=== PATIENT | female | born 1955 | race Caucasian/White ===

== ENCOUNTER → 2017-11-18 | Outpatient (CLI) | payer OTHER ==
--- NOTE | 2017-11-19 07:51 | XCELERA REPORT ---
[address] [address] Lower Extremity Arterial Evaluation Name: JOVI MARTINEZ Age: 62 yrs Gender: Female : 1955 Patient Status: Outpatient Patient Location: Study Date: 11/18/2017 09:32 AM Procedure: A color flow and duplex scan of the lower extremity arteries was performed bilaterally with velocity and waveform anaylsis. Reason For Study: ULCER Ordering Physician: CLARA RIVERA Performed By: Geronimo John Measurements and Calculations Right Left MANAGER PROJECT MANAGEMENT PSV 137.1 131.3 cm/sec Prox PFA PSV 54.5 83.3 cm/sec Prox SFA PSV 101.2 139.9 cm/sec Mid SFA PSV -126.5 -120.8 cm/sec Dist SFA PSV -115.9 -120.7 cm/sec Prox Pop A PSV 96.2 86.1 cm/sec Dist MERNA PSV 115.0 cm/sec Dist CREDIT DEPARTMENT MANAGER PSV 101.2 10.0 cm/sec Channing Pedis PSV 102.0 87.4 cm/sec Right Side Arterial Evaluation Normal velocity and triphasic waveforms noted from the Common Femoral artery to the infrageniculate vessels. 0 % stenosis . Ankle Brachial index was declined by the patient. Challenging study due to body habitus. Left Side Arterial Evaluation Normal velocity and triphasic waveforms noted from the Common Femoral artery to the Popliteal artery. Infrageniculate vessels, difficult to identify. Dorsalis Pedis triphasic and entirely normal. 0 % stenosis . Ankle Brachial index was declined by the patient. Challenging study due to body habitus. Interpretation Summary No hemodynamically significant lesions in the right lower extremity only, on duplex imaging, at rest. Left probably normal also, study limited by body habitus. : CLARA RIVERA > Solomon Rivero
--- NOTE | 2017-11-19 07:57 | XCELERA REPORT ---
[address] [address] Lower Extremity Venous Evaluation Name: JOVI MARTINEZ Age: 62 yrs Gender: Female : 1955 Patient Status: Outpatient Patient Location: Study Date: 11/18/2017 10:14 AM Procedure: A bilateral duplex scan of the lower extremity veins was performed. The evaluation included responses to compression and other maneuvers with patient in the supine and standing positions to assess venous insufficiency. Reason For Study: ULCER Ordering Physician: CLARA RIVERA Performed By: Geronimo John Right Sided Venous Evaluation Deep venous system evaluation shows patent veins with no obstruction or significant reflux identified. Sapheno Femoral junction: no reflux. Femoral vein reflux: no reflux. Greater Saphenous vein, Proximal thigh: reflux: 1seconds, 7.8 mm diameter. Greater Saphenous vein, mid thigh: reflux: 2 seconds. 7.6 mm. Greater Saphenous vein, Distal thigh: reflux: 1.5 seconds.5.5 mm. Greater Saphenous vein, Proximal below knee: No significant Perforators identified. Left Sided Venous Evaluation Deep venous system evaluation shows patent veins with no obstruction or significant reflux identified. Sapheno Femoral junction: no reflux. Femoral vein reflux: no reflux. Greater Saphenous vein, Proximal thigh: no reflux. Greater Saphenous vein, mid thigh: reflux: 1.3 seconds. 5.8 mm. Greater Saphenous vein, Distal thigh: reflux: 1.8 seconds.7.6 mm. Greater Saphenous vein, Proximal below knee: No significant Perforators identified. Interpretation Summary No duplex evidence of DVT or obstruction in the bilateral lower extremities. Bilateral Greater Saphenous reflux noted. May be amenable to intervention. : CLARA RIVERA > Solomon Rivero
== END ==
LOC: SP 08:33
PROVIDERS: ATTEND Nurse Practitioner
DX: L97.222 Non-pressure chronic ulcer of left calf with fat layer exposed (principal)
CPT/HCPCS: 93925; 93970

== ENCOUNTER → 2018-04-27 | Outpatient (CLI) | payer OTHER ==
--- NOTE | 2018-04-27 14:23 | RADIOLOGY REPORT (SQ) ---
EXAM DESCRIPTION: CT CHEST WITH COMPLETED DATE/TIME: 04/27/2018 1:25 pm REASON FOR STUDY: I31.3 PERICARDIAL EFFUSION (NONINFLAMMATORY) I31.3 PERICARDIAL EFFUSION (NONINFLA MMATORY) COMPARISON: None. TECHNIQUE: CT scan of the chest performed using helical scanning technique with dynamic intravenous contrast injection. Images reviewed with lung, soft tissue and bone windows. Reconstructed coronal and sagittal MPR and MIP images reviewed. All images stored on PACS. All CT scanners at this facility use dose modulation, iterative reconstruction, and/or weight based d osing when appropriate to reduce radiation dose to as low as reasonably achievable (ALARA). [facility]: Dose Right [facility]: CareDose [facility]: Dose Right [facility]: Teradose 4D [facility]: Ybrain CONTRAST TYPE AND DOSE: contrast/concentration: Isovue 350.00 mg/ml; Total Contrast Delivered: 80.0 ml; Total Saline Delivered: 55.0 ml RENAL FUNCTION: Creatinine 1.2 RADIATION DOSE: CT Rad equipment meets quality standard of care and radiation dose reduction techniq ues were employed. CTDIvol: 19.1 mGy. DLP: 695 mGy-cm. . LIMITATIONS: Artifact from defibrillator. FINDINGS: LUNGS AND PLEURA: No opacities, nodules, masses. No pneumothorax. No effusions. HILAR AND MEDIASTINAL STRUCTURES: Calcified mediastinal nodes. HEART AND VASCULAR STRUCTURES: Small pericardial effusion posterior border left ventricle. HARDWARE: Epicardial pacing leads. Left transvenous defibrillator. UPPER ABDOMEN: No significant findings. Limited exam. THYROID AND OTHER SOFT TISSUES: No masses. No adenopathy. BONES: No acute findings. OTHER: No other significant finding. IMPRESSION: Small pericardial effusion. TECHNICAL DOCUMENTATION: JOB ID: [id number] Quality ID # [id number]: Final reports with documentation of one or more dose reduction techniques (e.g., Au tomated exposure control, adjustment of the mA and/or kV according to patient size, use of iterative reconstruction technique) 2010 [employer]- All Rights Reserved Reading location - IP/workstation name: [email or web address]
== END ==
LOC: RAD 14:25
PROVIDERS: ATTEND Physician Assistant Medical
DX: I31.3 Pericardial effusion (noninflammatory) (principal)
CPT/HCPCS: 71260; 82565